=== PATIENT | female | born 1980 | race Hispanic/Latino ===

== ENCOUNTER 2023-04-15 14:09 | Emergency (ER) | payer BC, OTHER ==
[2023-04-15] MEDS ORDERED: Boostrix 0.5 ML (Tdap) VIAL (>/=7 yrs of age) ONE (14:31)
[2023-04-15] MEDS ORDERED: Bacitracin 1 PK ONE (14:38)
== END 2023-04-15 15:09 | disposition home or self-care (01) ==
LOC: NAV ERS 14:09
DX: S61.212A Laceration without foreign body of right middle finger without damage to nail, initial encounter (principal); G89.29 Other chronic pain; R10.9 Unspecified abdominal pain; F17.210 Nicotine dependence, cigarettes, uncomplicated; Z23 Encounter for immunization; X58.XXXA Exposure to other specified factors, initial encounter
CPT/HCPCS: 90471; 90715; 99282

== ENCOUNTER 2023-08-22 09:56 | Emergency (ER) | payer BC ==
[2023-08-22] MEDS ORDERED: Ondansetron PF 4 MG/2 ML Vial ONE (10:20)
[2023-08-22] MEDS ORDERED: Sodium Chloride 0.9% 1,000 ML ONE ×3 (10:20→13:13)
[2023-08-22] MEDS ORDERED: Acetaminophen 500 MG TAB ONE (10:20)
[2023-08-22 10:41] LABS: ALT (SGPT) 29 U/L (8-55); AST (SGOT) 20 U/L (5-34); Albumin 4.1 g/dL (3.5-5.0); Alkaline Phosphatase 81 U/L (40-110); Anion Gap 15 mmol/L (10-20); BUN (Urea Nitrogen) 6 mg/dL (7.0-18.7); Bilirubin, Total 0.9 mg/dL (0.2-1.2); Calc. Creatinine Clearance 0 mL/min (70-130); Carbon Dioxide 20 mmol/L (22-29); Chloride 103 mmol/L (98-107); Estimated GFR 84; Globulin 4.2 g/dL (2.4-3.5); Glucose 176 mg/dL (70-105); Potassium 3.7 mmol/L (3.5-5.1); Protein, Total 8.3 g/dL (6.0-8.3); Sodium 134 mmol/L (136-145)
[2023-08-22 10:53] LABS: Hematocrit 42.7 % (36.0-47.0); Hemoglobin 14.3 g/dL (12.0-16.0); Mean Corpuscular HGB CONC 33.5 g/dL (32.0-36.0); Mean Corpuscular Hemoglobin 30.9 pg (27.0-31.0); Mean Corpuscular Volume 92.2 fl (78.0-98.0); Platelet Count 230 10x3/uL (130-400); RBC Distribution Width 11.8 % (11.5-14.5); Red Blood Cell (RBC) Count 4.63 mill/uL (4.20-5.40); White Blood Cell (WBC) Count 14.3 10x3/uL (4.8-10.8)
[2023-08-22 11:00] LABS: MDiff Complete? YES
[2023-08-22 11:01] LABS: Band 9 % (5-11); Lymphocytes 3 % (21-51); Monocytes 2 % (0-10); Neutrophil 86 % (42-75)
[2023-08-22 11:02] LABS: Platelet Adequacy Comment Appears Adequate
[2023-08-22 11:04] LABS: Bilirubin Negative (Negative); Blood, Urine Small (Negative); Clarity Clear (Clear); Glucose, Urine (Dipstick) Negative (Negative); Ketone, Urine Negative (Negative); Leukocyte Negative (Negative); Nitrite Negative (Negative); Protein, Urine (Dipstick) Negative (Neg-Trace); Urobilinogen 0.2 mg/dL (Less than 2); pH, Urine 7.5 (5.0-9.0)
[2023-08-22 11:34] LABS: Bacteria/HPF None Seen HPF (None Seen); CAUTI Indications for Culture Fever or rigors; RBC/HPF 0-3 HPF (0-3); Squamous Epithelial 0-3 HPF (0-3); WBC/HPF 0-3 HPF (0-3)
[2023-08-22 11:35] LABS: Urine Culture Reflex No No
[2023-08-22] MEDS ORDERED: Metoclopramide HCl 10 MG (2 mL) VIAL ONE ×2 (11:37→13:12)
[2023-08-22] MEDS ORDERED: diphenhydrAMINE 50 MG/ML VIAL ONE (11:37)
[2023-08-22 12:45] LABS: Influenza A by NAA Not Detected (NotDetected); Influenza B by NAA Not Detected (NotDetected); SARS-CoV-2 NAA Rapid Test Not Detected (NotDetected)
[2023-08-22 13:04] LABS: Lactic Acid 0.8 mmol/L (0.5-2.2)
== END 2023-08-22 14:41 | disposition home or self-care (01) ==
LOC: NAV ERS 09:56
DX: B34.9 Viral infection, unspecified (principal); E86.0 Dehydration; R19.7 Diarrhea, unspecified; F17.210 Nicotine dependence, cigarettes, uncomplicated
CPT/HCPCS: 71045; 80053; 81001; 83605; 85025; 87040; 87081; 87430; 96361; 96365; 96375; 96376; J1200; J2405; J2765; J7050